=== PATIENT | female | born 1990 | race Caucasian/White ===

== ENCOUNTER 2018-05-27 06:21 | Day surgery (SDC) | payer OTHER ==
[~2018-05-27] VITALS: Ht 157.5 cm; Wt 85.6 kg
[2018-05-27] MEDS ORDERED: CELEXA 20MG20 MG/TAB PO (06:38)
[2018-05-27 06:41] VITALS: BP 125/82; PULSE 80; TEMP 98.6
[2018-05-27 08:03] VITALS: BP 134/86; PULSE 89; TEMP 98.5
[2018-05-27 08:15] VITALS: BP 111/75; PULSE 98
[2018-05-27 08:30] VITALS: BP 113/67; PULSE 74
[2018-05-27 08:45] VITALS: BP 114/61; PULSE 95
[2018-05-27 11:21] VITALS: BP 137/65; PULSE 89
== END 2018-05-27 08:52 | disposition home or self-care (01) ==
LOC: SDCO 06:21
DX: K58.9 Irritable bowel syndrome, unspecified (principal)
CPT/HCPCS: J2250; J2405; J3010; J7030